=== PATIENT | female | born 1965 | race Caucasian/White ===

== ENCOUNTER 2023-02-21 13:14 | Emergency (ER) | payer MEDICAID ==
[2023-02-21] MEDS ORDERED: Cephalexin 500 MG CAP ONE (13:26)
[2023-02-21] MEDS ORDERED: Bacitracin 1 PK ONE (13:26)
[2023-02-21] MEDS ORDERED: Boostrix 0.5 ML (Tdap) VIAL (>/=7 yrs of age) ONE (13:26)
[2023-02-21] MEDS ORDERED: Lidocaine 1% w/Epinephrine 1:100K 20 ML VIAL ONE (13:26)
== END 2023-02-21 13:54 | disposition home or self-care (01) ==
LOC: MADERS 13:14
DX: S90.851A Superficial foreign body, right foot, initial encounter (principal); Z23 Encounter for immunization; E03.9 Hypothyroidism, unspecified; Z79.899 Other long term (current) drug therapy; W45.8XXA Other foreign body or object entering through skin, initial encounter
CPT/HCPCS: 28190; 90471; 90715